=== PATIENT | male | born 1950 | race Caucasian/White ===

== ENCOUNTER 2017-07-26 12:20 | Inpatient (IN) | payer BC, MEDICARE ==
[~2017-07-26] VITALS: Ht 180.3 cm; Wt 68.9 kg
--- NOTE | ~2017-07-26 | RHP ---
PATIENT: FAVIAN LYNNE MEDICAL RECORD: [id number] ACCOUNT: [id number] LOCATION:[id number] : 52 ADMISSION DATE: 07/26/17 REHABILITATION HISTORY AND PHYSICAL EXAMINATION POST ADMISSION PHYSICIAN EXAMINATION POST-ADMISSION PHYSICAL EXAMINATION AND HISTORY AND PHYSICAL DATE OF ADMISSION: 07/26/2017 ADMITTING DIAGNOSES: Neurological condition including critical illness myopathy and acute kidney injury and also severe protein malnutrition. HISTORY OF PRESENT ILLNESS: The patient is a 57-year-old gentleman, who is admitted with a history of weight loss, abdominal pain, status post resection of a large 10-cm abdominal mass, splenectomy, partial pancreatectomy, and colostomy. Mass was benign. He was transferred to [facility] for continued wound care and debridement, IV antibiotics, and medical management. Past medical history is significant for anxiety, hypertension, diabetes, hyperlipidemia, remote CVA. He is on aspirin and Plavix. He has been having some worsening abdominal pain. He has been evaluated by [facility] in [place] and also found to have a colon wall thickening along with other findings suggestive of a malignancy. The patient had been sick for 6 months with decreased appetite, recurrent nausea and vomiting, and a significant weight loss of 30 pounds. He is an active smoker. CT of the abdomen revealed a mass in the splenic flexure. Secondary involvement of the spleen was noted. There was also encasement of the inferior vena cava and infrarenal abdominal aorta. There appeared to be malignancy and lymphadenopathy. He was also incidentally noted to have mild right hydronephrosis and gallstones. Urology was consulted and went to the OR on 06/20 for a cystoscopy with right ureteral stent placement, went to the OR again on 06/21 for excision of abdominal mass greater than 10 cm. He has developed abdominal abscess since surgery, required percutaneous drainage. One drain was removed on 07/16 and another one on 07/22. He still has a third KAREEM drain remaining with scant drainage of 10 cc in the previous 24 hours. Culture of the abscess was positive for enterococcus, E. coli, and salmonella. IV Zosyn was started on 07/17, but plan is to change to p.o. antibiotics once discharged to rehab. Chest tube was discontinued on 07/03. The patient has been on room air with a sat of 95% or higher, since then he has had no complaints of shortness of breath. White count has been somewhat high, but not expected since he has had a splenectomy. H&H have been somewhat low also, but he has not been given any blood products. Platelets have been extremely high. Heme/onc was consulted and anagrelide was started. Platelets have been decreasing since then, are now back to 495. He is extremely weak in all 4 extremities due to critical illness myopathy. He has large amount of weight loss secondary to this. On admission, he weighed 240. He was down 170 pounds on 07/17. He is currently 157 to 07/24. He has got severe protein malnutrition. He does have poor dentition. He does not want a PEG tube. He is tolerating a regular diet and has been increasing his intake. He is enjoying breakfast sandwiches, which his brings to him. He has also had good colostomy output. He also has been somewhat hyponatremic and had a low magnesium. He is being followed by wound care nurse and also wound VAC dressing changes to his abdomen twice a week. He has got moderate physical deconditioning and myopathy requiring further rehab, PT and OT for strengthening and deconditioning. He is [id number]-on-hdo assist with physical therapy. He has got proximal muscle weakness. He has ambulated 6 feet with a rolling walker HISTORY AND PHYSICAL [id number] FAVIAN LYNNE with moderate assist. He is sitting up in chair at bedside for over 2 hours at a time. He was completely independent living at home with his prior to this critical illness. He is retired last year, but lives an active lifestyle. Lives in a double [facility] and home with stairs to the [facility]. He has good family support and would like to return back home. Inpatient rehab would definitely be needed in this patient. Comorbidities in this patient include colonic mass, peritonitis, respiratory failure, metabolic encephalopathy, acidosis, leukocytosis, acute blood loss anemia, colon wall thickening, hydronephrosis, malnutrition, large amount of weight loss, moderate physical deconditioning, anxiety, diabetes, hyperlipidemia, hypertension, remote CVA, post-procedural fever. PAST MEDICAL HISTORY: Significant for hypertension, diabetes, hyperlipidemia, remote history of CVA. ALLERGIES: No known drug allergies. CURRENT MEDICATIONS: Include amiodarone 400 mg daily, B12 injections weekly. He is on Agrylin 1 mg b.i.d. He is on Levaquin 500 mg daily. He is on Zoloft 100 mg daily. He is on Plavix 75 mg daily, aspirin chewable 81 mg daily, Klonopin 1 mg daily, Protonix 40 mg daily, Mag-Ox 400 mg daily, folic acid 2 mg daily, Floranex 460 mg daily, simvastatin 20 mg at bedtime, Klonopin 0.5 mg at bedtime, Silvadene ointment as needed, Zofran 8 mg every 8 hours p.r.n., Remeron 15 mg at bedtime, Downing 7.5/325 one tab every 6 hours p.r.n., Mucinex D 1 tab b.i.d., clonidine p.r.n. elevated blood pressure. He is on Thorazine as needed for hiccups. He is on calcium 500 mg daily, Augmentin 1 tab b.i.d. He is on albuterol updrafts and acetaminophen 650 mg every 6 hours p.r.n. fever. HABITS: Does have a history of tobacco use. FAMILY HISTORY: Noncontributory. SOCIAL HISTORY: The patient hopes to return back to home with his , get back to his prior level of functioning. REVIEW OF SYSTEMS: GENERAL: Does complain of weakness and fatigue. HEENT: Denies cold, cough, or congestion. CARDIOVASCULAR: Denies chest pain. PHYSICAL EXAMINATION: VITAL SIGNS: Stable, afebrile. GENERAL: A well-developed gentleman, in no acute distress upon exam. HEENT: Normocephalic and atraumatic. Mucosa moist. NECK: Supple. No lymphadenopathy. LUNGS: Appear clear at this time. HEART: Irregular rate and rhythm. ABDOMEN: Does have multiple surgical scars. A KAREEM drain noted. EXTREMITIES: No clubbing, cyanosis or edema. NEUROLOGIC: Intact. LABORATORY DATA: His white count is 22.6, H&H of 8 and 30, and platelet count is noted to be 413. Sodium 130, potassium is 4.9, BUN and creatinine of 43 and 3.3, and blood sugar is noted to be 119. ASSESSMENT: This is a 57-year-old gentleman admitted to the rehab with a HISTORY AND PHYSICAL [id number] FAVIAN LYNNE A working diagnosis of critical illness myopathy. The patient has potential to make improvement. We will institute the following multidisciplinary therapies including, but not limited to physical, occupational, respiratory, speech, nutritional services, prosthetics and orthotics. Given his complex condition and risk for more complications, rehabilitation services cannot be provided at a low level of care such as a shelter facility. PLAN: 1. Admit to [facility] for intensive inpatient therapy to include the following disciplines: A. Physical therapy to improve gait, all transfer skills and bed mobility to a modified independent level. B. Occupational therapy to improve activities of daily living to a modified independent level. C. Case management to assist with discharge planning and placement options. D. Nutrition to assist with nutritional needs. E. Rehabilitation nursing to assist in monitoring the patient's underlying medical conditions and to assist with any type of bowel or bladder management. 2. The patient's current medication and medical care will be continued. 3. The patient will be placed on standard fall precautions. 4. The patient's estimated length of stay is approximately 7 to 10 days. 5. We will discuss this patient during care team staff meeting this week. TRANSINT:[id number] Voice Confirmation ID: [id number] DOCUMENT ID: [id number] ERYN notes whether there has been none or any medical/functional change since admission: - See NN for body audit. Drain to distal flank area into gluteal abcess. ERYN attests patient continues to be appropriate for IRF: - Continues to be appropriate. SASHA LATHAM MD at 1455 CC: [id number] DICTATION DATE: 07/27/17 1353 SALVAGE REPAIRER: 07/27/17 1456 DIS IN 07/28/17 [place] [id number] [place] [id number]
[2017-07-26] MEDS ORDERED: APAP325 MG (14:13)
[2017-07-26] MEDS ORDERED: PROVENTIL/2.5 MG/3 M INH (14:14)
[2017-07-26] MEDS ORDERED: PACERONE400 MG PO ×2 (14:14→14:17)
[2017-07-26] MEDS ORDERED: AUGMENTIN 875-11 TAB PO (14:20)
[2017-07-26] MEDS ORDERED: AGRYLIN0.5 MG PO (14:21)
[2017-07-26] MEDS ORDERED: TUMS500 MG PO (14:24)
[2017-07-26] MEDS ORDERED: THORAZINE25 MG PO (14:25)
[2017-07-26] MEDS ORDERED: CIPRO500 MG PO (14:27)
[2017-07-26] MEDS ORDERED: CATAPRES0.1 MG (14:29)
[2017-07-26] MEDS ORDERED: VITAMIN B-1000 MCG/M IM (14:29)
[2017-07-26] MEDS ORDERED: FOLIC ACID1 MG (14:32)
[2017-07-26] MEDS ORDERED: MUCINEX600 MG PO (14:34)
[2017-07-26] MEDS ORDERED: NORCO 7.5/325 T1 TA1 (14:35)
[2017-07-26] MEDS ORDERED: REMERON15 MG PO (14:36)
[2017-07-26] MEDS ORDERED: MAG-OX 400 MG400 MG PO (14:36)
[2017-07-26] MEDS ORDERED: ZOFRAN8 MG PO (14:37)
[2017-07-26] MEDS ORDERED: PROTONIX40 MG PO (14:37)
[2017-07-26] MEDS ORDERED: SILVADENE20 GM (14:39)
[2017-07-26] MEDS ORDERED: KLONOPIN0.5 MG PO (14:40)
[2017-07-26] MEDS ORDERED: KLONOPIN1 MG PO (14:40)
[2017-07-26] MEDS ORDERED: PLAVIX75 MG PO (14:41)
[2017-07-26] MEDS ORDERED: ASPIRIN81 MG PO (14:41)
[2017-07-26] MEDS ORDERED: ZOCOR20 MG PO (14:42)
[2017-07-26] MEDS ORDERED: ZOLOFT100 MG PO (14:42)
[2017-07-26 17:09] VITALS: BP 130/74; BMI 21.2
[2017-07-26 19:34] VITALS: BP 110/68
[2017-07-27 06:12] LABS: ANION GAP 20.4 mmol/L (8-16); CALCIUM 10.5 mg/dL (8.5-10.1); CARBON DIOXIDE 19.5 mmol/L (21.0-32.0); CREATININE - SERUM 3.3 mg/dL (0.6-1.3); POTASSIUM - SERUM 4.9 mmol/L (3.5-5.1)
[2017-07-27 06:33] LABS: HEMATOCRIT 30.3 % (42.0-54.0); HEMOGLOBIN 8.6 g/dL (13.5-17.5); MCHC 28.4 g/dL (31.0-37.0); MCV 73.9 fL (80.0-100.0); MEAN PLATELET VOLUME 10.4 fL (7.4-10.4); PLATELET COUNT 413 10x3/uL (130-400); RDW 20.5 % (11.5-14.5); WBC 22.6 10x3/uL (4.8-10.8)
[2017-07-27 07:27] LABS: EOSINOPHILS 4 % (0-7); LYMPHOCYTES 16 % (15-50); MONOCYTES 7 % (2-11); NEUTROPHILS 72 % (40-80); PLATELET ESTIMATE INCREASED
[2017-07-27 08:26] VITALS: BP 145/73
[2017-07-27 12:14] VITALS: Ht 180.3 cm; Wt 68.9 kg
[2017-07-27 20:00] VITALS: BP 122/65
== END 2017-07-28 11:00 | DRG 91 ==
LOC: D.REHAB 12:20 → EDBD 13:50 → D.REHAB 07-28 11:00
PROVIDERS: Emergency Medicine
DX: G72.81 Critical illness myopathy (principal); E43 Unspecified severe protein-calorie malnutrition; K65.9 Peritonitis, unspecified; G93.41 Metabolic encephalopathy; J96.90 Respiratory failure, unspecified, unspecified whether with hypoxia or hypercapnia; N17.9 Acute kidney failure, unspecified; A02.9 Salmonella infection, unspecified; E87.1 Hypo-osmolality and hyponatremia; D62 Acute posthemorrhagic anemia; N13.30 Unspecified hydronephrosis; E87.2 Acidosis; E08.22 Diabetes mellitus due to underlying condition with diabetic chronic kidney disease; E78.5 Hyperlipidemia, unspecified; I10 Essential (primary) hypertension; F41.9 Anxiety disorder, unspecified; R63.4 Abnormal weight loss; Z68.21 Body mass index [BMI] 21.0-21.9, adult; B95.2 Enterococcus as the cause of diseases classified elsewhere; B96.20 Unspecified Escherichia coli [E. coli] as the cause of diseases classified elsewhere; E83.42 Hypomagnesemia; R50.82 Postprocedural fever; Z90.3 Acquired absence of stomach [part of]; Z90.81 Acquired absence of spleen; Z90.411 Acquired partial absence of pancreas; I49.8 Other specified cardiac arrhythmias